=== PATIENT | female | born 1930 | race Caucasian/White ===

== ENCOUNTER 2016-12-26 17:48 | Inpatient (IN) | payer MEDICARE ==
[~2016-12-26] VITALS: Ht 160 cm; Wt 55.6 kg
--- NOTE | ~2016-12-26 | PR ---
[place], [place] PROGRESS NOTE NAME: JAMES ALEX [facility] #: [id number] UNIT #: [id number] ROOM: 409 DOCTOR: NAHID MEZA III, DPM BIRTHDATE: [birth year] DOS: 12/29/2016 TIME: 09:42 a.m. SUBJECTIVE: This patient is seen at bedside for followup and reevaluation, status post I and D of her right leg. The patient is doing well with minimal complaints. She denies any fevers, chills, nausea, vomiting, chest pain, shortness of breath, calf pain or thigh pain. OBJECTIVE: VITAL SIGNS: Temperature 98.7, pulse rate 65, respiratory rate 20, blood pressure 140/60. VASCULAR: Neurovascular status is intact and unchanged. The patient has a healthy appearing wound appreciated to the medial aspect of her right calf. No soft tissue crepitation. No pus drainage. Minimal drainage is noted. Surrounding erythema is pretty much resolved. No cellulitis tracking proximally. ORTHOPEDICS: Muscle strength is intact. Negative Homans', negative calf pain. ASSESSMENT: One day status post incision and drainage of the right lower leg - satisfactory progress. PLAN: Findings and prognosis were discussed in detail with the patient. All questions were answered to her apparent satisfaction. The patient is okay for discharge from Podiatry standpoint. She is status post I and D of the right lower leg. She is responding well and dressing was changed at the bedside and repacked. She will follow up in the office with my partner, Bennett Diaz tomorrow for wound VAC application. The patient is in agreement with plan. NAHID MEZA III, DPM CM:PNTRANS [id number] NAHID MEZA III, DPM 12/30/1699 interface
--- NOTE | ~2016-12-26 | O ---
[place], [place] OPERATIVE NOTE NAME: JAMES ALEX UNIT #: [id number] ROOM: 409 DOCTOR: BENNETT DEL RIO DPM BIRTHDATE: [birth year] DOS: 12/28/2016 PREOPERATIVE DIAGNOSES: Hematoma, ulceration, right lower leg and calf. POSTOPERATIVE DIAGNOSES: Hematoma, ulceration, right lower leg and calf. PROCEDURE: Incision and drainage of hematoma, right lower leg/calf with debridement of ulceration with tissue biopsy. ESTIMATED BLOOD LOSS: 5 mL. SPECIMENS: Tissue, ulceration, hematoma right lower leg. PACKING: Half inch plain packing. CONTROL AND RECOVERY SPECIAL TACTICS: None. SURGEON: Bennett Del Rio DPM. ANESTHESIA: LMAC. PROCEDURE DETAILS: The patient was brought to the operating room placed on operating table in supine position. Anesthesia administered by Anesthesia Department. Local infiltration of 17 mL of 0.5% Marcaine plain was utilized for local block surrounding the hematoma site. The right lower extremity is prepped and draped in usual septic manner. No tourniquet was utilized during the procedure. Attention was directed to the medial lower right leg calf region where hematoma was noted total measuring approximately 9 cm in diameter. There is centralized open wound with eschar noted approximately 2.2 cm in diameter. The eschar was excised in total with 15 blade including the subcutaneous tissue and was sent to pathology for biopsy the tissue. Next, the hematoma was incised and drained utilizing curette and suction approximately 5 mL of blood loss was noted, the hematoma tissue was removed in total from the surrounding hematoma which extended in all directions in the subcutaneous tissue plane. Next, pulse irrigation with saline was utilized to flush the hematoma site. There is no further evidence of hematoma noted. The wound was then packed with half inch plain packing covered with Adaptic, 4 x 4s, ABD, Kerlix and Selwyn bandage. The patient returned to the nursing unit, resume previous orders. Reinforce dressing as needed. The patient will be seen tomorrow for postoperative followup by Dr. Richardson. We will order a wound VAC for the patient to expedite healing postoperatively. [place], [place] OPERATIVE NOTE NAME: JAMES ALEX UNIT #: [id number] ROOM: 409 DOCTOR: BENNETT DEL RIO DPM BIRTHDATE: [birth year] BENNETT DEL RIO DPM CM:OPRECORD:OPERATIVE NOTE [id number] BENNETT DEL RIO DPM 12/28/16 1426 interface
--- NOTE | ~2016-12-26 | CON ---
[place], [place] REPORT [facility] CONSULTATION [id number] UN[facility] #: [id number] ROOM: 409 DOCTOR: NAHID MEZA III, DPM BIRTHDATE: [birth year] DOS: 12/27/2016 TIME: 12:33 p.m. CHIEF COMPLAINT: Right leg wound. HISTORY OF PRESENT ILLNESS: This is an 86-year-old female who was seen at bedside for evaluation regarding a right lower leg ulceration. The patient underwent an I and D in the office yesterday by my partner, Dr. Bennett Diaz. Ultrasound has not been done since then, which shows no signs of DVT. Arterial studies have also been performed. The patient relates that the wound developed she had her leg on a refrigerator door it has been nonhealing since that time. The patient has been very active and performs yoga on a regular basis. Family recommended that she have the wound seen yesterday at which time again an I and D was performed in the office. We recommended her admission to the hospital for surgical intervention. PAST MEDICAL HISTORY: Significant for hypertension, hypothyroidism and vitamin D deficiency. PAST SURGICAL HISTORY: 1. Significant for breast lump removal. 2. History of hip replacement. SOCIAL HISTORY: She denies any alcohol or illicit drug use or smoking. FAMILY HISTORY: Father is with history of hypertension. Mother as well. ALLERGIES: DAIRY WELL TAPE. MEDICATIONS: Please refer to medication list. PHYSICAL EXAMINATION: VITAL SIGNS: Temperature 98.0, pulse rate of 55, respiratory rate of 18, blood pressure 160/58. VASCULAR: DP and PT pulses are barely palpable; CFT is within normal limits, mild edema to the right calf. She also has multiple varicosities appreciated to the bilateral lower extremities. DERMATOLOGIC: The patient has a full thickness wound with eschar base appreciated to the anterior medial aspect of her right calf. There is some localized erythema appreciated. No crepitation. No pus drainage it is noted. No cellulitis tracking proximally. NEUROLOGIC: Intact, protective sensation. ORTHO: Muscle strength is maintained. Negative Homans', negative calf pain. LABORATORY DATA: White blood cell count 4.5, hemoglobin 12, hematocrit 35.7. INR of 1. IMAGING: Ultrasound showed no signs of DVT. X-rays are pending at this time. [place], [place] REPORT OF CONSULTATION NAME: JAMES ALEX UNIT #: [id number] ROOM: 409 DOCTOR: NAHID MEZA III, DPM BIRTHDATE: [birth year] Blood cultures are pending at this time. ASSESSMENT: 1. Trauma, right leg. 2. Ulceration with localized cellulitis to the right calf. TREATMENT PLANS AND RECOMMENDATIONS: Findings as well as prognosis was discussed in detail with the patient. All questions were answered to her apparent satisfaction. The patient has a necrotic appearing wound to the medial aspect of her calf of the right lower leg. Localized surrounding erythema is appreciated. We discussed the necrotic apparent to the wound and need for surgical debridement with possible application of wound VAC. The patient is in agreement, her daughter was at bedside. All questions were answered. She will be n.p.o. after midnight. Hold her blood thinners at this time. Plan for I and D with debridement and application of wound VAC tomorrow. All questions were answered to her apparent satisfaction. We also recommend Infectious Disease consult. The patient also denies any history of inflammatory bowel disease or she denies any history of inflammatory autoimmune types of disorder is that may be associated with pyoderma. We will plan to debride the wound and culture it as well as biopsy the tissue as well. NAHID MEZA III, DPM CM:CONSTR:REPORT OF CONSULTATION 1238 12/28/16 0026 interface
[2016-12-26 18:15] VITALS: BP 160/78
[2016-12-26] MEDS ORDERED: ARMOUR THYROID60 MG PO (18:15)
[2016-12-26] MEDS ORDERED: KEFLEX 500 MG E2 CAP PO (18:15)
[2016-12-26] MEDS ORDERED: METOPROLOL TART50 M1 PO (18:15)
[2016-12-26] MEDS ORDERED: VITAMIN D3400 UNIT PO (18:15)
[2016-12-26 19:06] LABS: BASO # 0.1 10*3/uL (0.0-0.1); BASO % 0.7 % (0.0-1.0); EOS # 0.1 10*3/uL (0.0-0.4); EOS % 1.4 % (1.0-4.0); HEMATOCRIT 37.6 % (37.0-47.0); HEMOGLOBIN 12.7 g/dl (12.0-16.0); LYMPH # 1.2 10*3/uL (1.3-4.4); LYMPH % 17.7 % (27.0-41.0); MEAN CELL VOLUME 88.5 fl (81.0-99.0); MEAN CORPUSCULAR HGB 29.9 pg (27.0-31.0); MEAN CORPUSCULAR HGB CONC 33.8 g/dl (33.0-37.0); MEAN PLATELET VOLUME 9.3 fl (9.6-12.3); MONO # 0.7 10*3/uL (0.1-1.0); MONO % 10.6 % (3.0-9.0); NEUT # 4.8 10*3/uL (2.3-7.9); NEUT % 69.2 % (47.0-73.0); PLATELET COUNT AUTOMATED 300 10*3/uL (130-400); RED BLOOD COUNT 4.25 10*6/uL (4.10-5.10); RED CELL DISTRI WIDTH 12.5 % (0-14.5); WHITE BLOOD COUNT 6.9 10*3/uL (4.8-10.8)
[2016-12-26 19:16] VITALS: BP 122/58
[2016-12-26 19:21] LABS: PROTHROMBIN TIME 10.5 SECONDS (9.0-12.4)
[2016-12-26 19:22] LABS: BUN 17 mg/dl (7-24); C-REACTIVE PROTEIN 2.24 MG/DL (0-0.3); CARBON DIOXIDE 26 mmol/L (21-32); CHLORIDE 108 mmol/L (98-107); EST GLOM FILT AFRICAN AMERICAN > 60 ml/min; GLUCOSE 90 mg/dL (65-99); SODIUM 142 mmol/L (136-145)
[2016-12-26 19:23] LABS: TROPONIN I < 0.015 ng/ml (<0.045)
[2016-12-26 19:35] LABS: BILIRUBIN NEGATIVE (NEGATIVE); BLOOD 1+ (NEGATIVE); CLARITY CLEAR (CLEAR); COLOR YELLOW (YELLOW); GLUCOSE NEGATIVE (NEGATIVE); KETONE NEGATIVE (NEGATIVE); LEUKO ESTERASE NEGATIVE (NEGATIVE); NITRITE NEGATIVE (NEGATIVE); PH 5.5 (5.0-9.0); PROTEIN NEGATIVE (NEGATIVE); UROBILINOGEN 0.2 E.U./dl (0.2-1.0)
[2016-12-26 19:44] LABS: BACTERIA 2+; URINE REFLEX COMMENT YES (NO)
[2016-12-26 21:53] VITALS: BP 197/71
[2016-12-26] MEDS ORDERED: VITAMIN D5000 I3 PO (22:10)
[2016-12-26 23:08] VITALS: BP 162/72
[2016-12-27] VITALS: BP 140/70
[2016-12-27 00:45] LABS: CKMB 1.5 ng/ml (0.5-3.6); CPK 42 U/L (26-192)
[2016-12-27 00:46] LABS: TROPONIN I < 0.015 ng/ml (<0.045)
[2016-12-27 06:33] LABS: BASO % 0.9 % (0.0-1.0); EOS # 0.2 10*3/uL (0.0-0.4); EOS % 4.2 % (1.0-4.0); HEMATOCRIT 35.7 % (37.0-47.0); LYMPH # 1.3 10*3/uL (1.3-4.4); LYMPH % 28.6 % (27.0-41.0); MEAN CELL VOLUME 89.3 fl (81.0-99.0); MEAN CORPUSCULAR HGB CONC 33.6 g/dl (33.0-37.0); MEAN PLATELET VOLUME 9.2 fl (9.6-12.3); MONO # 0.6 10*3/uL (0.1-1.0); MONO % 13.2 % (3.0-9.0); NEUT # 2.4 10*3/uL (2.3-7.9); NEUT % 52.9 % (47.0-73.0); PLATELET COUNT AUTOMATED 269 10*3/uL (130-400); RED CELL DISTRI WIDTH 12.4 % (0-14.5); WHITE BLOOD COUNT 4.5 10*3/uL (4.8-10.8)
[2016-12-27 06:45] LABS: CKMB 1.1 ng/ml (0.5-3.6); CPK 37 U/L (26-192)
[2016-12-27 06:48] LABS: TROPONIN I < 0.015 ng/ml (<0.045)
[2016-12-27 07:04] LABS: ALBUMIN 2.8 gm/dl (3.1-4.5); ALKALINE PHOSPHATASE 62 U/L (45-117); BILIRUBIN, TOTAL 0.8 mg/dl (0.2-1.0); BUN 12 mg/dl (7-24); CARBON DIOXIDE 28 mmol/L (21-32); CHLORIDE 111 mmol/L (98-107); CHOLESTEROL 131 mg/dL (<200); EST GLOM FILT AFRICAN AMERICAN > 60 ml/min; GLUCOSE 77 mg/dL (65-99); HDL CHOLESTEROL 47 mg/dl (40-60); LDL CHOLESTEROL 74 mg/dL (9-159); MAGNESIUM 2.2 mg/dL (1.5-2.1); PHOSPHOROUS 3.8 mg/dL (2.5-4.9); POTASSIUM 3.7 mmol/L (3.5-5.1); SGOT/AST 16 IU/L (3-35); SGPT/ALT 16 U/L (12-78); SODIUM 146 mmol/L (136-145); TOTAL PROTEIN 6.4 gm/dL (6.4-8.2); TRIGLYCERIDES 51 mg/dl (<150); VLDL CHOLESTEROL 10 mg/dL (6-40)
[2016-12-27 07:08] LABS: PROTHROMBIN TIME 10.8 SECONDS (9.0-12.4)
[2016-12-27 07:14] LABS: THYROID STIM HORMONE (HS) < 0.005 uIU/ml (0.358-4.75)
[2016-12-27 08:00] VITALS: BP 150/56
[2016-12-27 08:07] LABS: VITAMIN D, 25-HYDROXY 73.5 ng/mL (30-100)
[2016-12-27 08:08] LABS: FOLIC ACID 15.06 ng/mL (>5.38)
[2016-12-27 08:27] LABS: HEMOGLOBIN A1c 5.3 % (4.8-5.6)
[2016-12-27 11:56] VITALS: BP 160/58
[2016-12-27 12:26] LABS: CKMB 1.2 ng/ml (0.5-3.6); CPK 37 U/L (26-192); TROPONIN I < 0.015 ng/ml (<0.045)
[2016-12-27 16:00] VITALS: BP 150/53
[2016-12-27 20:00] VITALS: BP 140/60
[2016-12-28] VITALS (8 sets, daily range): BP systolic 136–172; BP diastolic 53–87
[2016-12-28 06:48] LABS: BASO % 0.5 % (0.0-1.0); EOS # 0.2 10*3/uL (0.0-0.4); HEMATOCRIT 40.9 % (37.0-47.0); HEMOGLOBIN 13.5 g/dl (12.0-16.0); LYMPH # 1.3 10*3/uL (1.3-4.4); LYMPH % 21.4 % (27.0-41.0); MEAN CELL VOLUME 89.5 fl (81.0-99.0); MEAN CORPUSCULAR HGB 29.5 pg (27.0-31.0); MEAN PLATELET VOLUME 9.6 fl (9.6-12.3); MONO # 0.5 10*3/uL (0.1-1.0); NEUT # 3.9 10*3/uL (2.3-7.9); NEUT % 65.6 % (47.0-73.0); PLATELET COUNT AUTOMATED 322 10*3/uL (130-400); RED BLOOD COUNT 4.57 10*6/uL (4.10-5.10); RED CELL DISTRI WIDTH 12.5 % (0-14.5)
[2016-12-28 07:14] LABS: BUN 11 mg/dl (7-24); CARBON DIOXIDE 24 mmol/L (21-32); CHLORIDE 110 mmol/L (98-107); EST GLOM FILT AFRICAN AMERICAN > 60 ml/min; GLUCOSE 106 mg/dL (65-99); POTASSIUM 3.7 mmol/L (3.5-5.1); SODIUM 143 mmol/L (136-145)
[2016-12-29] VITALS: BP 135/88
[2016-12-29 08:00] VITALS: BP 138/102; BP 140/60
[2016-12-29 12:00] VITALS: BP 125/65
[2016-12-29] MEDS ORDERED: LACTINEX 0.2 MG1 TAB PO (12:31)
[2016-12-29] MEDS ORDERED: DOXYCYCLINE100 MG PO (12:40)
[2016-12-29] MEDS ORDERED: NORCO 7.5-3251 EACH PO (12:40)
== END 2016-12-29 14:11 | disposition home or self-care (01) | DRG 570 ==
LOC: ED 17:48 → 4E 20:52 → EDHOLD 20:52 → 4E 21:03
PROVIDERS: Emergency Medicine Emergency Medical Services; Hospitalist; Internal Medicine
DX: L03.115 Cellulitis of right lower limb (principal); E43 Unspecified severe protein-calorie malnutrition; E87.8 Other disorders of electrolyte and fluid balance, not elsewhere classified; L97.219 Non-pressure chronic ulcer of right calf with unspecified severity; D72.810 Lymphocytopenia; S80.11XA Contusion of right lower leg, initial encounter; I10 Essential (primary) hypertension; E55.9 Vitamin D deficiency, unspecified; M71.21 Synovial cyst of popliteal space [Baker], right knee; E03.9 Hypothyroidism, unspecified; R73.9 Hyperglycemia, unspecified; Z96.643 Presence of artificial hip joint, bilateral; X58.XXXA Exposure to other specified factors, initial encounter; Z85.3 Personal history of malignant neoplasm of breast; Z82.49 Family history of ischemic heart disease and other diseases of the circulatory system; Z91.048 Other nonmedicinal substance allergy status; Z79.899 Other long term (current) drug therapy; Z68.21 Body mass index [BMI] 21.0-21.9, adult; Y93.89 Activity, other specified; Y92.89 Other specified places as the place of occurrence of the external cause; Y99.8 Other external cause status